=== PATIENT | male | born 1990 | race Caucasian/White ===

== ENCOUNTER 2020-02-27 11:13 | Outpatient (CLI) | payer BC ==
--- NOTE | 2020-02-27 11:50 | ULT ---
EXAM: Testicular/scrotal ultrasound HISTORY: Scrotal pain on the left for 11 days COMPARISON: None TECHNIQUE: Multiplanar grayscale and color Doppler images were obtained in a testicular/scrotal ultra sound. Spectral analysis of the Doppler waveforms of the testicles were performed. FINDINGS: Right testicle: Normal in echogenicity. No focal mass. Normal internal flow. Left testicle: Normal in echogenicity. No focal mass. Normal internal flow. Right epididymis. 5 mm epididymal cyst Normal internal flow. Left epididymis. 5 mm epididymal cyst Normal internal flow. Small left hydrocele is present. No varicocele is present. IMPRESSION: 1. Bilateral epididymal cysts 2. Small left hydrocele
== END 2020-02-27 11:14 | disposition home or self-care (01) ==
LOC: SCSULT 11:13
PROVIDERS: ATTEND Urology
DX: N50.812 Left testicular pain (principal); N50.3 Cyst of epididymis; N43.3 Hydrocele, unspecified
CPT/HCPCS: 76870; 93976